=== PATIENT | female | born 1975 | race Hispanic/Latino ===

== ENCOUNTER 2016-10-07 17:10 | Emergency (ER) | payer BC ==
[2016-10-07 17:26] VITALS: BMI 30.1
[2016-10-07] MEDS ORDERED: Sodium Chloride 0.9% 1,000 ML IV ONE (17:34)
--- NOTE | 2016-10-07 17:35 | C.PDOC ---
History Of Present Illness Patient is a 40 y/o female that presents to the ED for evaluation of nausea and multiple episodes of vomiting since this morning. Patient states that she is unable to tolerate any food intake, and is feeling dehydrated. Patient notes possible sick contact , works at hospital. Otherwise, denies any recent travel, abdominal pain, diarrhea, fever, chills, or any other associated symptoms at this time. Time Seen by Provider: 10/07/16 17:31 Chief Complaint (Nursing): GI Problem History Per: Patient History/Exam Limitations: no limitations Onset/Duration Of Symptoms: Hrs Current Symptoms Are (Timing): Still Present Associated Symptoms: Nausea, Vomiting. denies: Fever, Chills, Diarrhea, Back Pain, Chest Pain, Constipation, Urinary Symptoms Exacerbating Factors: None Alleviating Factors: None Recent travel outside of the [place]: No Additional History Per: Patient Abnormal Vaginal Bleeding: No Past Medical History Reviewed: Historical Data, Nursing Documentation, Vital Signs Vital Signs: Last Vital Signs Temp 99.5 F 10/07/16 17:27 Pulse 98 H 10/07/16 17:27 Resp 16 10/07/16 17:27 BP 146/101 H 10/07/16 17:27 Pulse Ox 99 10/07/16 18:01 - Medical History PMH: Hypothyroidism Surgical History: Appendectomy Family History: States: No Known Family Hx - Social History Hx Alcohol Use: No Hx Substance Use: No - Immunization History Hx Tetanus Toxoid Vaccination: Yes Hx Influenza Vaccination: Yes Hx Pneumococcal Vaccination: Yes Review Of Systems Constitutional: Negative for: Fever, Chills Cardiovascular: Negative for: Chest Pain, Palpitations Respiratory: Negative for: Shortness of Breath Gastrointestinal: Positive for: Nausea, Vomiting. Negative for: Abdominal Pain , Diarrhea, Constipation Genitourinary: Negative for: Dysuria, Frequency, Hematuria Musculoskeletal: Negative for: Back Pain Neurological: Negative for: Numbness, Headache, Dizziness Physical Exam - Physical Exam Appears: Non-toxic, No Acute Distress Skin: Warm, Dry, No Diaphoretic, No Pale Head: Atraumatic, Normacephalic Eye(s): bilateral: Normal Inspection, EOMI Neck: Normal ROM, Supple Chest: Symmetrical Cardiovascular: Rhythm Regular, No Murmur Respiratory: Normal Breath Sounds, No Rales, No Rhonchi, No Wheezing Gastrointestinal/Abdominal: Soft, No Tenderness, No Distention, No Guarding, No Rebound, Other ((-) Wan's sign) Back: No CVA Tenderness, No Paraspinal Tenderness Extremity: Normal ROM Neurological/Psych: Oriented x3, Normal Speech ED Course And Treatment - Laboratory Results Result Diagrams: 10/07/16 17:43 10/07/16 17:43 Lab Interpretation: No Acute Changes O2 Sat by Pulse Oximetry: 99 Pulse Ox Interpretation: Normal Progress Note: Labs ordered and reviewed. Patient was given IV fluids, Pepcid IVP, and Zofran inj. On reassessment, patient is resting comfortably, no acute distress. Abdomen remains soft and non-tender. Medical Decision Making Medical Decision Making: Impression: 40 y.o female with multiple episodes of vomiting Plan: * Labs * IV NS, Zofran Progress: Labs show no leukocytosis or severe dehydration, no UTI. Upon reevaluation, patient has no fever and reports feeling better. Patient was able to tolerate fluids in ED. Abdomen remains soft and nontender. Vitals signs are WNL and patient is stable for discharge. Patient feels comfortable going home and will be discharged. Disposition Counseled Patient/Family Regarding: Studies Performed, Diagnosis, Need For Followup, Rx Given - Disposition Referrals: [facility] [Outside] Disposition: HOME/ ROUTINE Disposition Time: 18:17 Condition: IMPROVED Additional Instructions: Drink fluids to prevent dehydration. Take Zofran as prescribed. Follow up with your primary medical doctor or clinic in 2-5 days for further evaluation. Return to the emergency department at any time if symptoms persist or worsen. Instructions: Acute Nausea and Vomiting (ED) - POA Present On Arrival: None - Clinical Impression Clinical Impression: Vomiting - PA / PRODUCTION ENGINEER / Resident Statement MD/DO has reviewed & agrees with the documentation as recorded. - Scribe Statement The provider has reviewed the documentation as recorded by the Kenneth Frank All medical record entries made by the Kenneth were at my direction and personally dictated by me. I have reviewed the chart and agree that the record accurately reflects my personal performance of the history, physical exam, medical decision making, and the department course for this patient. I have also personally directed, reviewed, and agree with the discharge instructions and disposition.
[2016-10-07] MEDS ORDERED: Sodium Chloride 0.9% 1,000 ML ONE (17:41)
[2016-10-07 17:47] LABS: BASO % 0.4 % (0.0-2.0); EOS % 0.2 % (0.0-4.0); HEMATOCRIT 42.1 % (34.0-47.0); LYMPH # 0.7 K/uL (1.0-4.3); LYMPH % 7.6 % (20.0-40.0); MEAN CELL VOLUME 92.2 fL (81.0-99.0); MEAN CORPUSCULAR HEMOGLOBIN 31.3 pg (27.0-31.0); MEAN CORPUSCULAR HGB CONC 33.9 g/dL (33.0-37.0); MEAN PLATELET VOLUME 10.1 fL (7.2-11.7); MONO # 0.5 K/uL (0.0-0.8); MONO % 5.3 % (0.0-10.0); PLATELET COUNT 195 K/uL (130-400); RED CELL DISTRIBUTION WIDTH 14.7 % (11.5-14.5); WHITE BLOOD COUNT 8.6 K/uL (4.8-10.8)
[2016-10-07 17:56] LABS: CHLORIDE 91 mmol/L (98-107); SODIUM 135 mmol/L (132-148)
[2016-10-07 17:58] LABS: ALB/GLOB RATIO 1.3 (1.0-2.1); AST/SGOT 45 U/L (14-36); BILIRUBIN,TOTAL 1.2 mg/dL (0.2-1.3); CARBON DIOXIDE 23 mmol/L (22-30); GFR AFRICAN-AMERICAN > 60
[2016-10-07 17:59] LABS: ALKALINE PHOSPHATASE 62 U/L (38-126); ALT/SGPT 36 U/L (9-52); BLOOD UREA NITROGEN 12 mg/dL (7-17); CALCIUM 9.2 mg/dl (8.6-10.4); GLUCOSE,RANDOM 118 mg/dL (65-105)
[2016-10-07 18:08] LABS: RBC URINE 14 /hpf (0-3); URINE BACTERIA RARE (<OCC); URINE BILIRUBIN NEGATIVE (NEGATIVE); URINE BLOOD 2+ (NEGATIVE); URINE COLOR Amber (YELLOW); URINE GLUCOSE (UA) NORMAL (Normal); URINE KETONE 2+ mg/dL (NEGATIVE); URINE LEUKOCYTE ESTERASE NEG Leu/uL (Negative); URINE PROTEIN 2+ mg/dL (NEGATIVE); URINE UROBILINOGEN NORMAL mg/dL (0.2-1.0); WBC URINE 3 /hpf (0-5)
[2016-10-07 18:40] LABS: NEUTROPHIL 84 % (50-75); TOTAL CELLS COUNTED 100
[2016-10-07 18:54] VITALS: BP 148/99; PULSE 102; RESP 20; TEMP 99.2
[2016-10-08 11:02] VITALS: O2SAT 99
== END 2016-10-07 19:16 | disposition home or self-care (01) ==
LOC: C.ER 17:10
DX: R11.10 Vomiting, unspecified (principal)
CPT/HCPCS: 80053; 81001; 83690; 84703; 85025; 96361; 96374; 96375; 99284; J2405; J7040